=== PATIENT | female | born 1935 | race Caucasian/White ===

== ENCOUNTER 2020-07-08 13:15 | Inpatient (IN) | payer MEDICARE ==
[~2020-07-08] VITALS: Ht 162.6 cm; Wt 38.1 kg
--- NOTE | ~2020-07-08 | OP ---
[address] [address] OPERATIVE REPORT Name: PRISCILLAKERRI Chirinos Room: [address] IN M.R.#: [id number] Admission: 07/08/20 Attend Phys: Topher Kennedy Discharge: Date of : 35 Report #: [id number] THIS REPORT FOR: cc: Mauricio Mcarthur MD, James MD ~ Omid Harrison DO DICTATED BY: Dodie Camarena DO DATE OF SERVICE: 07/09/2020 PREOPERATIVE DIAGNOSIS: Left valgus impacted subcapital femur fracture. POSTOPERATIVE DIAGNOSIS: Left valgus impacted subcapital femur fracture. PROCEDURE PERFORMED: Left in situ pinning of left valgus impacted proximal femur fracture. SURGEON: Omid Harrison DO HOSPITAL MONITOR: 1. Dodie Camarena DO 2. Joe Gaines DO 3. Juan J Berumen DO BLOOD LOSS: 20 mL. COMPLICATIONS: None. ANESTHESIA: General. REASON FOR PROCEDURE: This is a pleasant 84-year-old female who resides at [facility]. She has baseline confusion and has a history of dementia. She had an unwitnessed fall at the [place]. X-rays at the facility were taken and concerning for a hip fracture, so she was brought in. Risks, benefits and alternatives were discussed with the patient as well as with her son. DESCRIPTION OF PROCEDURE: The patient was brought back to the operative suite. She was given general anesthetic and placed on the [place] table. A timeout was performed indicating correct patient, procedures, time and allergies. Her left femur fracture was then reduced with traction and adduction. Once the reduction was adequate based on C-arm, the patient was draped and prepped in the standard sterile fashion. The C-arm was utilized to rodríguez out the lesser trochanter as well as the angulation of the neck. Then, an incision was made going through the IT band in the standard technique. The pin was then utilized to place the first angulation of the screw. This was [place] [id number] OPERATIVE REPORT Name: KERRI WELLS Room: [address] IN [facility].#: [id number] Admission: 07/08/20 Attend Phys: Topher Kennedy Discharge: Date of : 35 Report #: [id number] trochanter. A C-arm was utilized to get correct positioning. Once this was adequate on both the AP and lateral views, attention was brought to the posterior superior pin. This was made to be parallel to the first pin site. Once this was in adequate position, the attention was brought to the third pin, which was confirmed based on AP and lateral C-arm radiographs. The lateral cortex was then reamed utilizing the standard reamer. All holes were measured and measured to be 75 for the inferior screw and 80 for both superior screws at the anterior and posterior. These screws were then placed utilizing a hand and powered drill. The incision site was then fully irrigated and closed utilizing 0 Vicryl and 2-0 Monocryl and closed with Mepilex. The patient was given Eliquis for her inpatient stay due to her ALLERGY TO ASPIRIN. She was given adequate pain control and she will be made toe-touch weightbearing on the left. She will follow up in clinic in 2 weeks. By: [id number] Tristan Harrison DO /naty
[2020-07-08 13:18] VITALS: BP 121/38
[2020-07-08] MEDS ORDERED: ATENOLOL 100MG100 MG PO (13:25)
[2020-07-08] MEDS ORDERED: ATENOLOL 50MG T50 MG PO (13:26)
[2020-07-08] MEDS ORDERED: DULCOLAX5 MG PO (13:27)
[2020-07-08] MEDS ORDERED: GLYCOLAX119 GM PO (13:27)
[2020-07-08] MEDS ORDERED: DULCOLAX10 MG RECTAL (13:27)
[2020-07-08] MEDS ORDERED: DYAZIDE 37.5-21 EACH PO (13:28)
[2020-07-08] MEDS ORDERED: MECLIZINE HCL12.5 MG PO (13:29)
[2020-07-08] MEDS ORDERED: ONE DAILY WOME1 EAC3 PO (13:30)
[2020-07-08] MEDS ORDERED: MILK OF MA400 MG/5 M PO (13:30)
[2020-07-08] MEDS ORDERED: PROTONIX40 M2 PO (13:30)
[2020-07-08] MEDS ORDERED: NORVASC 2.5 MG2.5 M1 PO (13:30)
[2020-07-08] MEDS ORDERED: DIGESTIVE PROB250 MG PO (13:30)
[2020-07-08] MEDS ORDERED: SENNA LAX8.6 MG PO (13:31)
[2020-07-08] MEDS ORDERED: TRAZODONE HCL50 MG PO (13:31)
[2020-07-08] MEDS ORDERED: SIMVASTATIN40 MG PO (13:31)
[2020-07-08] MEDS ORDERED: TYLENOL EXTRA500 MG PO (13:32)
[2020-07-08] MEDS ORDERED: AMBIEN 5 MG TABL5 M1 PO (13:32)
[2020-07-08 13:49] LABS: ABSOLUTE BASOPHILS 0.1 thou/uL (0.0-0.2); ABSOLUTE EOSINOPHILS 0.1 thou/uL (0.0-0.7); ABSOLUTE MONOCYTES 0.7 thou/uL (0.0-1.2); ABSOLUTE NEUTROPHILS 7.3 thou/uL (1.6-8.1); BASOPHILS 1.1 %; EOSINOPHILS 0.8 %; HEMATOCRIT 32.9 % (37.0-47.0); HEMOGLOBIN 10.8 gm/dL (12.0-15.0); LYMPHOCYTES 11.3 %; MCH 31.4 pg (26.0-34.0); MCHC 32.9 g/dL (28.0-37.0); MCV 95.6 fL (80.0-100.0); MONOCYTES 7.5 %; MPV 7.6 fl. (7.2-11.1); NUCLEATED RBCS 0 /100WBC; PLATELET COUNT* 281 thou/uL (150-400); POLYS 79.3 %; RBC 3.45 mil/uL (4.20-5.00); WBC 9.2 thou/uL (4.0-11.0)
[2020-07-08 13:52] LABS: URINE BILIRUBIN NEGATIVE (Negative); URINE BLOOD NEGATIVE (Negative); URINE CLARITY CLEAR; URINE COLOR YELLOW; URINE GLUCOSE-RANDOM NEGATIVE (Negative); URINE KETONES NEGATIVE (Negative); URINE LEUKOCYTES-REFLEX 1+ (Negative); URINE PROTEIN NEGATIVE (Negative)
[2020-07-08 13:54] LABS: URINE NITRITE-REFLEX POSITIVE (Negative)
[2020-07-08 13:58] LABS: BACTERIA-REFLEX >30 Many /HPF (None Seen); CASTS None Seen /LPF (None Seen); MUCUS None Seen strn/LPF (None Seen); SQUAMOUS 4-10 Moderate /LPF (0-3); URINE RBC 3-10 Few /HPF (0-2); URINE WBC-REFLEX 6-15 Few /HPF (0-5)
[2020-07-08 13:59] LABS: APTT 23.6 Seconds (25.0-31.3); PROTIME 10.7 Seconds (9.20-11.50)
[2020-07-08 13:59] LABS: CRYSTALS None Seen /LPF (None Seen)
[2020-07-08 14:25] LABS: ALBUMIN 2.6 g/dL (3.4-5.0); CALCIUM 8.6 mg/dL (8.5-10.1); POTASSIUM 3.9 mmol/L (3.5-5.1); TOTAL BILIRUBIN 0.4 mg/dL (<0.1-1.0)
[2020-07-08 17:00] LABS: CALCIUM 8.7 mg/dL (8.5-10.1); PHOSPHORUS* 3.2 mg/dL (2.5-4.9)
[2020-07-08 20:40] VITALS: BP 113/62
[2020-07-08 20:50] VITALS: BP 126/49
[2020-07-09 07:59] VITALS: BP 146/57
--- NOTE | 2020-07-09 07:59 | NUR ---
REPORT RECIEVED FROM [facility] IN ED AT 2019 THAT THIS PT IS FROM [facility], [place]. THIS PATIENT FELL AT [facility], LEFT HIP FRACTURE, AND HAS UTI. THIS PT HAS BEEN CONSULTED WITH [facility]TH[facility] FOR SURGERY 07-09-20 TO HAVE SCREWS PLACED. PT ARRIVED TO THIS UNIT AT 2044. PT WAS SEDATED AND SLEEPING. PT WAS UNABLE TO VERBALIZE HEALTHCARE ASSESSMENT AND HISTORICAL ASSESSMENT. CHARTING COMPLETED PER NURSING ASSESSMENT. VSS. PT HAS GARRIDO CATHETER IN PLACE. 800CC DARK YELLOW URINE NOTED IN COLLECTION BAG. PT HAS A 20G RFA SL AND 20G LAC SL. PT HAS AN ORDER TO BE NPO AT MIDNIGHT, ORDER IMPLEMENTED. ORDER RECIEVED FOR CALF SLEEVES BL. SLEEVES PLACED ORDERED. PT WAS UNABLE TO GIVE CONSENT FOR SURGERY TODAY. PT'S PRIMARY CONTACT/[facility] WAS CONTACTED VIA PHONE PER AND VERBALIZED CONSENT FOR TREATMENT AND CONSENT FOR SURGERY. PT HAS BEEN RESTING DURING THE NIGHT. FALL PRECAUTIONS IN PLACE. HOURLY ROUNDING COMPLETED CHARTED. CALL LIGHT WITHIN REACH.
--- NOTE | 2020-07-09 10:21 | EKG ---
[place] [address] ELECTROCARDIOGRAM REPORT Name: KERRI WELLS Room: [address] ADM IN M.R.#: [id number] Admission: 07/08/20 Attend Phys: Uche Galicia Discharge: Date of : 35 Date of Service: 07/08/20 1338 Report #: [id number] THIS REPORT FOR: //name// [facility] ED Test Date: 2020-07-08 Test Time: 13:38:27 Pat Name: KERRI WELLS Department: Room: [facility] Gender: F Stunt Man: ZAIN : 1935 Requested By: Dashawn Szymanski Order Number: [id number] MD: Omid Baldwin Measurements Intervals [place] Rate: 78 P: 74 FL: 53 QRS: 49 QRSD: 78 T: 82 QT: 377 QTc: 430 Interpretive Statements Sinus rhythm Short FL interval artifact noted No previous ECG available for comparison Electronically Signed On 07-09-2020 10:21:13 ENDBAND CUTTER HAND by Omid Baldwin [email or web address] <ELECTRONICALLY SIGNED> By: Omid Baldwin MD, [facility] 07/09/20 1021 1338 1338 Omid Baldwin MD, [facility] /EPI
[2020-07-09 16:43] VITALS: BP 183/69
--- NOTE | 2020-07-09 18:27 | NUR ---
PATIENT ONLY ORIENTED TO SELF THIS MORNING PRIOR TO SURGERY AND HAS BEEN LETHARGIC SINCE COMING BACK FROM SURGERY. PATIENT MOANS AND GROANS AND STATES THAT SHE IS IN PAIN WHEN ASKED HOWEVER PATIENT STATES SHE "DOESN'T WANT IT RIGHT NOW" WHEN OFFERED PAIN MEDICATION. PATIENT HAS SLEPT MOST OF THE DAY AND WHEN ATTEMPTING TO FEED HER SHE REFUSES TO SWALLOW AND WHEN ASKED TO SWALLOW STATES "I CAN'T, IT'S NASTY". PATIENT CONTINUES TO HAVE URINARY CATHETER IN PLACE AND YELLOW URINE IS COLLECTING IN BAG. PATIENT HAS MAINTAINED OXYGEN LEVEL ON ROOM AIR AND IS CURRETNLY ON CONTINUOUS O2 SAT MONITOR. CALL LIGHT WITHIN REACH.
[2020-07-09 20:00] VITALS: BP 154/68
[2020-07-09 23:45] VITALS: BP 145/61
[2020-07-10 07:01] LABS: HEMATOCRIT 29.7 % (37.0-47.0); HEMOGLOBIN 10.1 gm/dL (12.0-15.0)
[2020-07-10 07:57] VITALS: BP 130/46
--- NOTE | 2020-07-10 08:08 | NUR ---
PATIENT VERY RESTLESS DURING THE NIGHT AT TIMES. VSS ON RA. PATIENT NOT WANTING TO MOVE OR BE TURNED AT TIMES. MEDICATIONS GIVEN ORDERED AND CHARTED. DRESSING TO LEFT HIP IS C/D/I. PATIENT HAS NOT BEEN UP DURING THE NIGHT. GARRIDO TO DEPENDENT DRAINAGE WITH YELLOW URINE OUTPUT. IV IN RIGHT FOREARM-SL. IV IN LEFT AC-SL. FALL PRECAUTIONS IN PLACE AND HOURLY ROUNDS MADE. WILL CONTINUE WITH PLAN OF CARE AND NURSING TO MONITOR.
[2020-07-10 16:32] VITALS: BP 133/40
--- NOTE | 2020-07-10 18:18 | NUR ---
PATIENT HAS BEEN A LITTLE MORE ALERT THIS SHIFT OPPOSED TO LAST. PATIENT CONTINUES TO BE ORIENTED TO SELF AND IS CONFUSED. PATIENT HAS REQUIRED MEDICATIONS TO BE CRUSHED AND PLACED IN APPLESAUCE IN ORDER TO SUCCESSFULLY SWALLOW. THIS NURSE SPOKE WITH RESIDENT THIS MORNING CONCERNING PATIENT'S SWALLOWING (ST CONSULT?) AND REQUESTED IV PAIN MEDICATION HOWEVER NO NEW ORDERS AT THIS TIME. PATIENT DOES HAVE REHAB CONSULT. IVS IN RIGHT FA AND LEFT AC DID NOT SUCCESSFULLY FLUSH, BOTH REMOVED AND NEW 22 GAUGE IV PLACED IN PATIENT'S LEFT UPPER ARM X1 ATTEMPT. PATIENT'S SON, SERGEI, CONTACTED THIS NURSE TO GET UPDATE ON PATIENT. HE ASKED IF PATIENT "STILL HAD COVID", HE WAS INFORMED THAT PATIENT'S PRE OP COVID TEST WAS NEGATIVE. SERGEI STATES HE MAY TRY TO COME BY TOMORROW TO SEE PATIENT. CALL LIGHT WITHIN REACH.
--- NOTE | 2020-07-10 18:39 | NUR ---
PATIENT CONTINUES TO BE UNABLE TO MAINTAIN HIP PRECAUTIONS.
[2020-07-10 20:30] VITALS: BP 138/63
[2020-07-11 04:00] VITALS: BP 105/39
[2020-07-11 04:01] LABS: HEMATOCRIT 28.8 % (37.0-47.0); HEMOGLOBIN 9.8 gm/dL (12.0-15.0)
--- NOTE | 2020-07-11 06:48 | NUR ---
ASSUMED CARE OF PATIENT AT 1930. PATIENT C/O PAIN IN HIP AT ASSESSMENT. PATIENT UNABLE TO RATE PAIN. PATIENT HAS SCHEDULED NORCO ADMINISTERED. PATIENT HAS LOWER EXTREMITY CONTRACTURES THAT MAKE IT DIFFICULT TO MAINTAIN HIP PRECAUTIONS. PILLOW CURRENTLY PLACE BETWEEN LEGS.
[2020-07-11 07:50] VITALS: BP 111/39
--- NOTE | 2020-07-11 12:58 | NUR ---
CM ATTEMPTED TO SPEAK TO THE PT TO DISCUSS CM ASSESSMENT. PT ALERT, BUT FORGETFUL AND ANSWERS 'I DON'T KNOW' TO MOST QUESTIONS. CM SPOKE TO PT'S SON/DPOA SERGEI WELLS AND HE INFORMS THAT THE PT IS FROM [facility] AND HAS BEEN THERE SINCE MAY. PT'S SON INFORMS THAT THE PT'S SPOUSE IS CURRENTLY THERE WELL AND PLAN IS FOR HER TO RETURN TO [facility] SNF AT D/C. PRIOR TO SNF AT [facility] THE PT RESIDED AT HOME WITH HER SPOUSE AND WAS INDEPENDENT WITH ADL'S. PT HAS NO HX OF HH. CM SPOKE TO ADMISSIONS WITH [facility] AND THEY CONFIRM ABILITY TO ACCEPT THE PT AT D/C TO SNF. PT WILL NEED RAPID COVID TESTING PRIOR TO D/C. CM WILL REMAIN AVAILABLE TO ASSIST AND FOLLOW NEEDED. [facility] PHONE: [phone] FAX: [phone]
[2020-07-11 13:53] VITALS: BP 120/45
--- NOTE | 2020-07-11 16:02 | NUR ---
PATIENT UP TO CHAIR THIS AM WITH THERAPY. PATIENT REPOSITIONED IN CHAIR FREQUENTLY. DRESSING TO LEFT HIP D/I, ICE PACK IN PLACE. GARRIDO DRAINING DARK YELLOW URINE, ENCOURAGED TO DRINK MORE FLUIDS AND PATIENT ASSISTED. PATIENT CONFUSED AT TIMES BUT REORIENTS WELL. SCHED HYDROCODONE GIVEN FOR PAIN ORDERED. PATIENT ASSISTED WITH MEALS. PATIENT UPSET THAT STAFF WAS WAKING HER UP THIS AM FOR MEDS AND TO EAT.
[2020-07-11 20:49] VITALS: BP 130/56
[2020-07-11 23:55] VITALS: BP 105/50
[2020-07-12 04:10] VITALS: BP 147/53
[2020-07-12 04:13] LABS: HEMATOCRIT 29.9 % (37.0-47.0); MCH 31.5 pg (26.0-34.0); MCHC 33.6 g/dL (28.0-37.0); MCV 93.9 fL (80.0-100.0); MPV 8.8 fl. (7.2-11.1); RBC 3.18 mil/uL (4.20-5.00); RDW-CV 13.7 % (10.5-14.5); WBC 5.5 thou/uL (4.0-11.0)
[2020-07-12 04:14] LABS: CALCIUM 9.2 mg/dL (8.5-10.1); POTASSIUM 3.6 mmol/L (3.5-5.1)
--- NOTE | 2020-07-12 06:23 | NUR ---
PT IS ABLE TO COMMUNICATE HER NEEDS TO STAFF WITH MINOR DIFFICULTY; SHE IS MARSHALL, CONFUSED AT TIMES, AND HER BASELINE SPEECH IS SLURRED. CURRENT PAIN MEDICATION REGIMEN HAS BEEN ADEQUATE FOR CONTROLLING HER PAIN UP TO THIS TIME. REHAB IS SEEING FOR EVAL. PT,OT,ST AND ORTHO SURG ALL FOLLOWING WELL.
[2020-07-12 07:30] VITALS: BP 119/69
[2020-07-12 09:58] VITALS: BP 119/69
[2020-07-12] MEDS ORDERED: HYDROCODON-ACE1 EAC7 PO ×2 (09:58)
[2020-07-12] MEDS ORDERED: TRAMADOL 50 MG50 MG PO (09:58)
[2020-07-12] MEDS ORDERED: ELIQUIS5 MG PO (09:58)
--- NOTE | 2020-07-12 14:11 | NUR ---
harpreet communicated w/sumaya at [facility], she will arrange w/c transportation for pt. cm faxed orders and rapid covid result to [phone]. cm contacted pt son, he was appreciative off care provided. rn provided w/number to call report [phone], [facility]. US made chart copy.
== END 2020-07-12 15:00 | DRG 480 ==
LOC: M.ERS 13:15 → M.2W 14:48 → M.TBA-ER 14:48 → M.2W 20:47
PROVIDERS: Family Medicine; Internal Medicine; Orthopaedic Surgery; ADMIT Internal Medicine; ATTEND Internal Medicine
PROC: 0QS734Z Reposition Left Upper Femur with Internal Fixation Device, Percutaneous Approach (ICD-10-PCS; principal; 2020-07-09)
PROC: 3E0T3BZ Introduction of Anesthetic Agent into Peripheral Nerves and Plexi, Percutaneous Approach (ICD-10-PCS; 2020-07-09)
DX: M80.052A Age-related osteoporosis with current pathological fracture, left femur, initial encounter for fracture (principal); E43 Unspecified severe protein-calorie malnutrition; G92 Toxic encephalopathy; N30.00 Acute cystitis without hematuria; Z68.1 Body mass index [BMI] 19.9 or less, adult; S72.092A Other fracture of head and neck of left femur, initial encounter for closed fracture; I10 Essential (primary) hypertension; E78.00 Pure hypercholesterolemia, unspecified; K21.9 Gastro-esophageal reflux disease without esophagitis; F03.90 Unspecified dementia, unspecified severity, without behavioral disturbance, psychotic disturbance, mood disturbance, and anxiety; W18.39XA Other fall on same level, initial encounter; R62.7 Adult failure to thrive; Z20.822 Contact with and (suspected) exposure to COVID-19; Z88.1 Allergy status to other antibiotic agents; Z88.5 Allergy status to narcotic agent; Z88.2 Allergy status to sulfonamides; Z88.8 Allergy status to other drugs, medicaments and biological substances; Z91.09 Other allergy status, other than to drugs and biological substances; Z79.899 Other long term (current) drug therapy; Y93.89 Activity, other specified; Y92.89 Other specified places as the place of occurrence of the external cause; Y99.8 Other external cause status